=== PATIENT | female | born 1970 | race Caucasian/White ===

== ENCOUNTER 2017-05-03 09:34 | Inpatient (IN) | payer OTHER ==
[2017-05-02 14:39] VITALS: BMI 49.4
[2017-05-03] MEDS ORDERED: ONDANSETRON 4 MG/2 ML VIAL IVPUSH PRN (12:19)
--- NOTE | 2017-05-03 12:19 | HP ---
History & Physical Update - History History: No Change - Physical Physical: No Change - Assessment Assessment: No Change - Plan Plan: No Change (Laparoscopic possible open vertical sleeve gastrectomy, possible liver iopsy, upper endoscopy)
[2017-05-03] MEDS ORDERED: LACTATED RINGERS SOLUTION 1,000 ML IV SCH (12:30)
[2017-05-03] MEDS ORDERED: PROPOFOL 20 ML ONE ×2 (12:46)
[2017-05-03] MEDS ORDERED: SUCCINYLCHOLINE CHLORIDE 200 MG/10 ML VIAL ONE (12:47)
[2017-05-03] MEDS ORDERED: ceFAZolin SODIUM 1 GM VIAL IVPB ONE (12:49)
[2017-05-03] MEDS ORDERED: ROCURONIUM BROMIDE 50 MG/5 ML VIAL ONE (12:57)
[2017-05-03] MEDS ORDERED: BUPIVACAINE HCL/PF 0.5% (5MG/ML) 10 ML VIAL ONE (13:11)
[2017-05-03] MEDS ORDERED: BUPIVACAINE HCL/PF 0.5% (5MG/ML) 10 ML VIAL IJ ONE ×2 (13:44→13:49)
--- NOTE | 2017-05-03 13:55 | OP ---
Operative Note - Note: Operative Date: 05/03/17 Pre-Operative Diagnosis: morbid obesity Operation: Laparoscopic vertical sleeve gastrectomy, liver biopsy, EGD Post-Operative Diagnosis: Other (morbid obesity, hepatomegaly) Surgeon: Umesh Abdi Vc++ Developer: Ibeth Nicholson Anesthesia: General Specimens Removed: Greater curvature of stomach. Liver biopsy Estimated Blood Loss (mls): 30 Drains & Tubes with Location: 36 fr bougie Operative Report Dictated: Yes
[2017-05-03] MEDS ORDERED: NEOSTIGMINE METHYLSULFATE 0.5 MG/ML - 10 ML MDV ONE (14:09)
--- NOTE | 2017-05-03 14:20 | SURG ---
Surgery Keg Varnisher Note Keg Varnisher: Ibeth Nicholson PA-C Date of Service: 05/03/17 Diagnosis: morbid obesity Procedure: Laparoscopic vertical sleeve gastrectomy, liver biopsy, EGD I was present for the entirety of the operative procedure. For further detail, please refer to operative report. Visit type - Case Type Case Type: Scheduled Admission - Emergency Emergency Visit: No - New patient This patient is new to me today: Yes Date on this admission: 05/03/17 - Critical Care Critical Care patient: No
[2017-05-03] MEDS ORDERED: morphine SULFATE 4 MG/ML VIAL IVPUSH PRN (14:51)
[2017-05-03] MEDS: METOCLOPRAMIDE HCL INJECTION 10 MG/2 ML VIAL IVPUSH SCH ×2 (15:00→21:20)
[2017-05-03] MEDS ORDERED: ACETAMINOPHEN INJECTION 100 ML IVPB ONE (15:01)
[2017-05-03] MEDS ORDERED: hydrALAZINE HCL 20 MG/ML VIAL ONE (15:01)
[2017-05-03] MEDS: ACETAMINOPHEN 1000 MG/100 ML VIAL (NON FORMULARY) IVPB SCH ×2 (15:05→21:19)
[2017-05-03] MEDS ORDERED: LABETALOL HCL 5 MG/1 ML (100MG/20 ML VIAL) IVPUSH ONE (15:30)
[2017-05-03] MEDS ORDERED: hydrALAZINE HCL 20 MG/ML VIAL IVPUSH ONE (15:30)
[2017-05-03 16:02] LABS: HEMOGLOBIN 14.4 GM/dL (10.7-15.3); MCH 30.8 pg (25.7-33.7); MCHC 33.4 g/dl (32.0-36.0); MEAN CELL VOLUME 92.1 fl (80-96); MEAN PLT VOLUME 11.6 fl (7.5-11.1); RBC 4.67 M/mm3 (3.60-5.2); RDW 13.3 % (11.6-15.6); WHITE BLOOD COUNT 18.9 K/mm3 (4.0-10.0)
--- NOTE | 2017-05-03 16:02 | SPEC ---
DATE OF OPERATION: 05/03/2017 SURGEON: Emelia Abdi MD BATHING SUIT MAKER: LARS Morales PREOPERATIVE DIAGNOSES: 1. Morbid obesity. 2. Body mass index of 49.4. 3. Hypertension. 4. Diabetes mellitus. POSTOPERATIVE DIAGNOSES: 1. Morbid obesity. 2. Body mass index of 49.4. 3. Hypertension. 4. Diabetes mellitus. 5. Hepatomegaly. PROCEDURE: 1. Laparoscopic vertical sleeve gastrectomy. 2. Laparoscopic wedge liver biopsy. 3. Upper endoscopy/esophagogastroduodenoscopy. SPECIMEN: 1. Greater curvature of stomach. 2. Liver biopsy. ESTIMATED BLOOD LOSS: 30 mL DRAINS: None. ANESTHESIA: GET. BOUGIE: 36-Hebrew. REASON FOR PROCEDURE: This is a 47-year-old female who presented to the office for weight loss options. After describing different options, she decided to proceed with a laparoscopic, possible open vertical sleeve gastrectomy, possible liver biopsy, and upper endoscopy. RISKS AND BENEFITS: After describing the different options for weight loss management, the patient decided to proceed with a laparoscopic, possible open vertical sleeve gastrectomy. The patient was seen by the respective subspecialties and cleared for surgery. The risks and benefits of the procedure were explained. These included bleeding, infection, hernia, [place], DVT, PE, injury to surrounding structures including the liver, colon, bowel, spleen, esophagus, vessel injury, nerve injury, weight regain, gastric leak, staple line leak, sleeve leak, obstruction, vitamin deficiency, hair loss and as some of the possible complications. The patient understood and signed informed consent. DESCRIPTION OF PROCEDURE: The patient was placed supine on the operating room table. The patient underwent general endotracheal intubation. A Erickson catheter was inserted. The arms were brought out at 90 degrees and secured. A footboard was placed and the legs were secured laterally with padding. The abdomen was prepped and draped in the usual sterile fashion. A timeout was performed. An incision was made in the left upper quadrant and a Veress needle inserted. Pneumoperitoneum was established. Subsequently, the Veress needle was removed and a 12-mm trocar was placed. The laparoscopic camera was then inserted and inspection of the abdominal cavity was performed. An incision was then made in the supraumbilical area and a 15-mm trocar was placed under direct visualization. A 5-mm trocar was then placed in the right upper quadrant and a 5-mm trocar was placed below the left subcostal margin. A stab wound was made in the subxiphoid area and a Sally clamp inserted and removed to dilate the tract. A Talisha liver retractor was inserted. The post was secured at the bedside by the nursing staff. The patient was placed in steep reverse Trendelenburg position and the Talisha liver retractor was used to secure the liver towards the anterior abdominal wall. The pylorus was identified and 6 cm proximal to it, the lesser sac was entered using the LigaSure device. All lateral attachments to the greater curvature of the stomach, including the short gastric vessels, were ligated using the LigaSure device toward the gastrosplenic and gastrophrenic ligaments. Once this was done in its entirety, it was confirmed that all tubes within the nasal or oropharyngeal cavity, including a temperature probe, was removed by Anesthesia. The bougie was then inserted by Anesthesia. Transection of the stomach was then begun staying adjacent to the bougie but away from the angularis. Transection of the stomach was performed near the portion of the stomach where the lesser sac was entered. Two laparoscopic Endo-SANJUANA black bharat were used at this location. Laparoscopic Endo SANJUANA purple staple loads were then used for the remainder of the transection until the greater curvature of the stomach was fully transected. This was done staying close to the bougie. Care was taken to stay away from the angle of His cephalad. The staple line was then inspected. Hemostasis was identified. A leak test was then performed. It was clamped distally to the staple line. Irrigation solution was placed in the left upper quadrant and air was insufflated by Anesthesia into the sleeve. No leaks were identified. No obstruction was identified. This was done through the entirety of the staple line. At this point, the irrigation solution was suctioned and again, hemostasis was noted. A wedge liver biopsy was then performed. The left lobe of the liver was identified and a portion of the edge was grasped. Using electrocautery, a wedge of the liver was excised. This was removed and sent off the field as specimen. Hemostasis at the site of the wedge liver biopsy was attained using electrocautery. The 15-mm supraumbilical trocar was then removed and the greater curvature specimen removed from the site using a sponge stick landa. The specimen was inspected and a Veress needle inserted. The specimen insufflated adequately and no leak was identified. The staple line was noted to be intact. A Mike-Jarek device was then used to temporarily close the fascia with a 0 Vicryl suture at the site. The 15-mm trocar was then reinserted and the 12-mm trocar in the left upper quadrant was removed. The fascia at this site was then closed using the Mike-Jarek device with a 0 Vicryl suture. Again, hemostasis was noted. The Talisha liver retractor was then removed under direct visualization. Pneumoperitoneum was desufflated and the fascial sutures were secured. Hemostasis was noted at all incision sites and Marcaine was injected at all incision sites. All incision sites were closed using 4-0 Biosyn. Sterile dressings were applied. The patient tolerated the procedure well and was transferred to the recovery room in stable condition with the Erickson catheter intact. The patient was transferred to telemetry for further monitoring. In addition, an upper endoscopy was performed at the end of the case. The endoscope was inserted into the patient's mouth. The esophagus, GE junction, gastric pouch, and staple lines were inspected. Hemostasis was noted. No leak or obstruction was noted. The endoscope was removed after suctioning the stomach. The patient tolerated the procedure well, transferred to recovery room in stable condition. EMELIA ABDI M.D. [id number]
[2017-05-03 16:35] LABS: ALBUMIN 3.5 g/dl (3.4-5.0); ALK PHOS 55 U/L (45-117); ANION GAP 8 (8-16); BILIRUBIN,TOTAL 0.8 mg/dL (0.2-1.0); BLOOD UREA NITROGEN 9 mg/dL (7-18); CHLORIDE 102 mmol/L (98-107); CO2 25 mmol/L (21-32); CREATININE 0.7 mg/dL (0.55-1.02); GLUCOSE,RANDOM 136 mg/dL (74-106); POTASSIUM 4.4 mmol/L (3.5-5.1); SGOT/AST 36 U/L (15-37); SGPT/ALT 38 U/L (12-78); SODIUM 135 mmol/L (136-145); TOT PROT 6.7 g/dl (6.4-8.2)
[2017-05-03] MEDS: SODIUM CHLORIDE 1,000 ML IV SCH ×2 (17:30→18:21)
[2017-05-03] MEDS: ONDANSETRON 4 MG/2 ML VIAL IVPUSH SCH ×3 (18:10→23:00)
[2017-05-03] MEDS: INSULIN SLIDING SCALE (NOVOLOG) 1 VIAL SQ SCH (18:16)
[2017-05-03 19:43] LABS: PLATELET COUNT 216 K/MM3 (134-434)
[2017-05-03] MEDS: FAMOTIDINE 20 MG/50 ML IVPB 20 MG/50 ML MG IVPB SCH (21:27)
[2017-05-03] MEDS: ENOXAPARIN NA (PORCINE) 40 MG/0.4 ML DISP.SYRIN SQ SCH (21:27)
[2017-05-04] MEDS: ACETAMINOPHEN 1000 MG/100 ML VIAL (NON FORMULARY) IVPB SCH ×2 (03:35→09:46)
[2017-05-04] MEDS: ONDANSETRON 4 MG/2 ML VIAL IVPUSH SCH ×6 (03:35→23:57)
[2017-05-04] MEDS: METOCLOPRAMIDE HCL INJECTION 10 MG/2 ML VIAL IVPUSH SCH ×4 (03:36→21:42)
[2017-05-04 06:35] LABS: HEMATOCRIT 41.1 % (32.4-45.2); HEMOGLOBIN 13.7 GM/dL (10.7-15.3); MCH 30.4 pg (25.7-33.7); MCHC 33.4 g/dl (32.0-36.0); MEAN CELL VOLUME 91.1 fl (80-96); MEAN PLT VOLUME 10.6 fl (7.5-11.1); PLATELET COUNT 226 K/MM3 (134-434); RBC 4.52 M/mm3 (3.60-5.2); RDW 13.3 % (11.6-15.6); WHITE BLOOD COUNT 14.1 K/mm3 (4.0-10.0)
[2017-05-04] MEDS: INSULIN SLIDING SCALE (NOVOLOG) 1 VIAL SQ SCH ×3 (06:37→17:55)
[2017-05-04 08:56] LABS: ALBUMIN 3.2 g/dl (3.4-5.0); ANION GAP 7 (8-16); BLOOD UREA NITROGEN 8 mg/dL (7-18); CHLORIDE 104 mmol/L (98-107); CO2 25 mmol/L (21-32); GLUCOSE,RANDOM 121 mg/dL (74-106); SGOT/AST 26 U/L (15-37); SGPT/ALT 36 U/L (12-78); SODIUM 136 mmol/L (136-145)
[2017-05-04 08:58] LABS: ALK PHOS 49 U/L (45-117); BILIRUBIN,TOTAL 1.1 mg/dL (0.2-1.0); CREATININE 0.6 mg/dL (0.55-1.02); TOT PROT 6.2 g/dl (6.4-8.2)
[2017-05-04] MEDS: ENOXAPARIN NA (PORCINE) 40 MG/0.4 ML DISP.SYRIN SQ SCH ×2 (09:55→21:54)
[2017-05-04] MEDS: FAMOTIDINE 20 MG/50 ML IVPB 20 MG/50 ML MG IVPB SCH ×2 (09:55→21:42)
[2017-05-04] MEDS: LEVOTHYROXINE SODIUM 100 MCG VIAL IM SCH (09:56)
--- NOTE | 2017-05-04 11:37 | PN ---
Progress Note, Physician Chief Complaint: s/p lap gastric sleeve under general anesthesia History of Present Illness: post op day one - Current Medication List Current Medications: Active Medications Enoxaparin Sodium (Lovenox -) 40 mg SQ BID [facility] Last Admin: 05/04/17 09:55 Dose: 40 mg Fentanyl (Sublimaze Injection -) 50 mcg IVPUSH [id number] PRN PRN Reason: PAIN-PACU ORDER X 4 DOSES ONLY Famotidine/Sodium Chloride (Pepcid 20 Mg Premixed Ivpb -) 20 mg in 50 mls @ 100 mls/hr IVPB BID [facility] Last Admin: 05/04/17 09:55 Dose: 100 mls/hr Sodium Chloride (Normal Saline -) 1,000 mls @ 150 mls/hr IV ASDIR [facility] Last Admin: 05/03/17 18:21 Dose: 150 mls/hr Insulin Aspart (Novolog Vial Sliding Scale -) 1 vial SQ TIDAC [facility] PRN Reason: Protocol Last Admin: 05/04/17 06:37 Dose: Not Given Levothyroxine Sodium (Synthroid Injection -) 50 mcg IM DAILY [facility] Last Admin: 05/04/17 09:56 Dose: 50 mcg Metoclopramide HCl (Reglan Injection -) 10 mg IVPUSH Q6H [facility] Last Admin: 05/04/17 09:47 Dose: 10 mg Morphine Sulfate (Morphine Sulfate) 4 mg IVPUSH Q4H PRN PRN Reason: PAIN LEVEL 4 - 6 Ondansetron HCl (Zofran Injection) 4 mg IVPUSH Q6H PRN PRN Reason: NAUSEA AND/OR VOMITING Ondansetron HCl (Zofran Injection) 4 mg IVPUSH Q4H [facility] Last Admin: 05/04/17 06:38 Dose: 4 mg - Objective Vital Signs: Vital Signs Temperature 98.8 F 05/04/17 10:00 Pulse Rate 91 H 05/04/17 10:00 Respiratory Rate 20 05/04/17 10:00 Blood Pressure 129/65 05/04/17 10:00 O2 Sat by Pulse Oximetry (%) 97 05/04/17 09:00 Constitutional: Yes: Well Nourished Cardiovascular: Yes: WNL Respiratory: Yes: WNL Gastrointestinal: Yes: WNL Labs: CBC, BMP 05/04/17 05:50 05/04/17 08:10 Assessment/Plan pain controlled, no adverse effects of anesthetic, no further intervention by the dept of anesthesia at this time.
[2017-05-04] MEDS ORDERED: oxyCODONE HCL 5 MG TABLET PO PRN ×2 (14:26→16:08)
--- NOTE | 2017-05-04 14:29 | PN ---
Progress Note (short form) - Note Progress Note: Pt withtout complaints of nausea or emesis. No CP/SOB. Oob and ambulating to the restroom. Vital Signs Period Temp Pulse Resp BP Sys/Moyer Pulse Ox Last 24 Hr 18 F-100.2 F 49-98 15-20 115-194/65-100 96-100 GEN: appears comfortable, resting in bed CV:RRR Lungs: Cta b/l ABD: soft, non-distended, inc tenderness. Inc c/d/I with bandaids LE: no calf tenderness or swelling b/l. TEDs in place CBC, BMP 05/04/17 05:50 05/04/18 08:10 Laboratory Tests 05/03/17 15:30 WBC 18.9 H Hgb 14.4 Hct 43.0 Plt Count 216 uGI-negative: no obstruction/leak seen A/P: 47 yo female s/p laparoscopic vertical sleeve gastretomy, POD#1 Begin bariatric POD#1 protocol oob/ambulate DVT ppx with lovenox SQ/JOSSY/SCDS ambulate D/w Dr Abdi
[2017-05-04] MEDS ORDERED: SODIUM CHLORIDE 1,000 ML IV SCH ×2 (14:30→16:15)
[2017-05-04 23:43] VITALS: PULSE 72
[2017-05-05] MEDS: METOCLOPRAMIDE HCL INJECTION 10 MG/2 ML VIAL IVPUSH SCH ×2 (03:58→10:05)
[2017-05-05] MEDS: ONDANSETRON 4 MG/2 ML VIAL IVPUSH SCH ×2 (03:58→06:24)
[2017-05-05 05:04] VITALS: BP 131/84
[2017-05-05] MEDS: INSULIN SLIDING SCALE (NOVOLOG) 1 VIAL SQ SCH (06:23)
[2017-05-05 07:58] VITALS: TEMP 97.8
[2017-05-05] MEDS: ENOXAPARIN NA (PORCINE) 40 MG/0.4 ML DISP.SYRIN SQ SCH (10:05)
[2017-05-05] MEDS: FAMOTIDINE 20 MG/50 ML IVPB 20 MG/50 ML MG IVPB SCH (10:06)
[2017-05-05] MEDS ORDERED: PT OWN MED DRAWER 7, Y5N ONE (10:21)
[2017-05-05] MEDS: LEVOTHYROXINE SODIUM 100 MCG VIAL IM SCH (10:22)
--- NOTE | 2017-05-05 11:41 | PATH ---
Surgical Pathology Report Patient Name: JR BUTLER [facility]. Rec. #: [id number] /Age/Gender: 1970 (Age: 47) / F Account: [id number] Location: U Taken: 05/03/2017 Received: 05/03/2017 Reported: 05/05/2017 Physicians: mUesh Abdi M.D. Specimen(s) Received A: LIVER BIOPSY B: GREATER CURVATURE OF STOMACH Clinical History Morbid obesity Final Diagnosis A. LIVER, WEDGE BIOPSY: MILD MACROVESICULAR STEATOSIS. IRON STAIN IS NEGATIVE FOR SIDEROSIS. NO INCREASED FIBROSIS IDENTIFIED WITH TRICHROME STAIN. B. STOMACH, GREATER CURVATURE, SLEEVE GASTRECTOMY: GASTRIC FUNDIC MUCOSA WITH MODERATE CHRONIC GASTRITIS. IMMUNOSTAIN FOR H. PYLORI IS POSITIVE (MODERATE NUMBER OF ORGANISMS). Electronically Signed Nixon Campos M.D. Gross Description A. Received in formalin labeled "liver biopsy," are 2 almanza, irregular portions of soft tissue measuring 1.7 x 0.8 x 0.3 cm and 1.9 x 0.6 x 0.5 cm. The larger portion is bisected and the specimen is entirely submitted in 2 cassettes. B. Received in formalin, labeled "greater curvature of stomach," is a 115 gram, 19.0 x 4.0 x 3.5 cm. portion of stomach with a stapled margin of resection. The serosa is almanza-raphael with minimal attached fat. The mucosa is almanza-pink with normal folds. No mucosal masses are identified. Reports Analyst sections are submitted in one cassette. 05/03/2017 [facility]05/03/2017
== END 2017-05-05 12:02 | disposition home or self-care (01) | DRG 403 ==
LOC: JSAMEDAYSX 09:34 → EDSTATUS 11:00 → J2W 17:45
PROVIDERS: ADMIT Surgery; ATTEND Surgery
PROC: 0DB64Z3 Excision of Stomach, Percutaneous Endoscopic Approach, Vertical (ICD-10-PCS; principal; 2017-05-03 11:00)
PROC: 0FB24ZX Excision of Left Lobe Liver, Percutaneous Endoscopic Approach, Diagnostic (ICD-10-PCS; 2017-05-03 11:00)
PROC: 0DJ08ZZ Inspection of Upper Intestinal Tract, Via Natural or Artificial Opening Endoscopic (ICD-10-PCS; 2017-05-03 11:00)
DX: E66.01 Morbid (severe) obesity due to excess calories (principal); R16.0 Hepatomegaly, not elsewhere classified; Z68.42 Body mass index [BMI] 45.0-49.9, adult; I10 Essential (primary) hypertension; E11.9 Type 2 diabetes mellitus without complications
CPT/HCPCS: 36415; 74241-TC-FY; 80053; 82962; 84703; 85027; 86850; 86900; 86901; 88305-TC; 88307-TC; 94010; 94760; J0131; J7030